=== PATIENT | female | born 1985 | race Caucasian/White ===

== ENCOUNTER → 2016-09-23 | Outpatient (CLI) | payer BC ==
[2013-12-12 23:24] VITALS: BP 124/57
--- NOTE | 2016-09-23 10:13 | KCIC ---
PROCEDURE CT maxillofacial without contrast. HISTORY Chronic sinusitis. Nasal obstruction. Cough, congestion, and drainage for 7 months. TECHNIQUE Axial images and coronal and sagittal re-formatted images are provided. One or more of the following individualized dose reduction techniques were utilized for this exam: 1. Automated exposure control. 2. Adjustment of the mA and/or kV according to patient's size. 3. Use of iterative reconstruction technique. COMPARISON None. FINDINGS Left frontal sinus is nearly completely opacified. There is mild right frontal sinus mucosal thickening. Ethmoid opacification anterior and mid cells is greater on the left left sphenoid mucosal thickening is noted. Right frontal recess appears patent. Left frontal recess is occluded. Sphenoid ethmoidal recesses are narrowed. There is moderate mucosal thickening in the right maxillary sinus. There is near complete opacification of the left maxillary sinus. There probably has been resection of the left uncinate process and widening of the left maxillary ostium. There has been widening of the right maxillary ostium with resection of the uncinate process there is slight nasal septal deviation to the right. There is no wall sclerosis. Mastoid air cells are clear. Orbital contents are unremarkable. IMPRESSION Mucosal thickening in the paranasal sinuses, greatest involvement of the left maxillary sinus. Electronically signed by: Andrew Martinez MD (Sep 23, 2016 10:12:12)
== END | disposition home or self-care (01) ==
LOC: KCIC CT 08:47
PROVIDERS: ATTEND Otolaryngology
DX: J32.9 Chronic sinusitis, unspecified (principal); R05 Cough; J34.2 Deviated nasal septum
CPT/HCPCS: 70486

== ENCOUNTER → 2016-10-25 | Outpatient (CLI) | payer BC ==
[2013-12-12 23:24] VITALS: BP 124/57
--- NOTE | 2016-10-25 15:55 | KCIC ---
PELVIS W/TV Clinical Indication: Pelvic pain. Comparison: None. TECHNIQUE: Real-time ultrasound imaging of the pelvis using transabdominal and transvaginal window is performed. Findings: Transabdominal window is limited. Ovaries are not seen. Retroflexed uterus. Uterus measures 8.5 x 3.9 x 5.8 cm. No focal abnormality. The endometrial stripe is normal measuring 6 mm. There is a tiny echogenicity adjacent to the endometrium without posterior acoustic shadowing. Finding could be a calcification. The right ovary measures 3.5 x 2.1 x 2.8 cm. There is a right ovary functional cyst measuring 1.7 x 1.3 x 1.7 cm. Increased vascularity periphery. The left ovary measures 2.5 x 2.9 x 2.2 cm. There is a complex cyst measuring 1.8 x 1.7 x 2.2 cm. There are heterogeneous internal echogenicities, somewhat reticular. Cyst is probably hemorrhagic. No internal vascular flow seen. Normal blood flow is seen in the ovaries. Mild cul-de-sac free fluid. IMPRESSION: 1. Small left ovary hemorrhagic cyst. 2. Small right ovary functional cyst. 3. Mild pelvic free fluid, probably physiologic. Electronically signed by: Emerson Campa MD (10/25/2016 3:52 PM)
== END | disposition home or self-care (01) ==
LOC: KCIC US 14:34
PROVIDERS: ATTEND Nurse Practitioner Family
DX: R10.2 Pelvic and perineal pain (principal); N83.201 Unspecified ovarian cyst, right side; N83.202 Unspecified ovarian cyst, left side
CPT/HCPCS: 76830; 76856

== ENCOUNTER → 2021-03-03 | Outpatient (CLI) | payer BC ==
[2013-12-12 23:24] VITALS: BP 124/57
--- NOTE | 2021-03-03 22:51 | KCIC ---
US PELVIS W/TV History: Reason: PELVIC PAIN / Spl. Instructions: / History: Comparison: None Technique: Grayscale and color Doppler imaging of the pelvis was performed using transabdominal and t ransvaginal technique. Findings: The uterus measures 7.6 x 5.7 x 3.8 cm. Uterus has an unremarkable appearance. The endometrial stri pe measures 3 mm. Dilated the bilateral adnexal vessels. Right ovary measures 3.7 x 2.4 x 2.1 cm. Dominant right ovarian follicle measures 0.9 cm. Left ovary measures 3 x 1 x 1.8 x 1.7 cm. Normal Doppler flow to the ovaries. No adnexal masses are seen. IMPRESSION: 1. Dilated prominent bilateral adnexal vessels, can be seen with pelvic congestion syndrome. Electronically signed by: Kushal Winters DO (03/03/2021 10:49 PM) [facility]
== END ==
LOC: KCIC US 12:41
PROVIDERS: ATTEND Nurse Practitioner Family
DX: R10.2 Pelvic and perineal pain (principal)
CPT/HCPCS: 76830; 76856

== ENCOUNTER → 2021-10-06 | Outpatient (CLI) | payer BC ==
[2013-12-12 23:24] VITALS: BP 124/57
--- NOTE | 2021-10-06 13:58 | KCIC ---
XR CHEST 2V INDICATION: Bronchitis, SOA, past hx. Covid. COMPARISON STUDY: 05/18/2016. FINDINGS: Lungs: Normal lung volume. No pulmonary mass or consolidation. The tracheobronchial tree and hilar st ructures are normal. Pleura: No pleural effusion or pneumothorax. Heart and Mediastinum: The cardiomediastinal silhouette is normal. The great vessels of the thorax ar e normal. Bones and Soft Tissues: The bones and soft tissues are within normal limits. IMPRESSION: No acute cardiopulmonary process. Electronically signed by: Ashwin Hayes MD (10/06/2021 1:55 PM) [id number]
== END ==
LOC: KCIC 13:29
PROVIDERS: ATTEND Nurse Practitioner Family
DX: J40 Bronchitis, not specified as acute or chronic (principal); R06.02 Shortness of breath; Z86.16 Personal history of COVID-19
CPT/HCPCS: 71046